=== PATIENT | male | born 1970 | race Caucasian/White ===

== ENCOUNTER → 2017-02-18 | Outpatient (CLI) | payer OTHER ==
--- NOTE | 2017-02-19 11:34 | US ---
EXAMINATION TYPE: US scrotum with doppler. Grayscale and color Doppler Duplex imaging performed of álvaro xiao scrotum. DATE OF EXAM: 02/18/2017 COMPARISON: NONE CLINICAL HISTORY: N44.2 benign cyst of testis. EXAM MEASUREMENTS: TESTICLES: Right Testicle: 4.9 x 2.3 x 3.1 cm Left Testicle: 4.4 x 1.9 x 3.2 cm EPIDIDYMIS HEAD: Right Epididymis: 1.5 cm, two cysts visualized, largest measuring 0.8 x 0.5 x 0.6 cm Left Epididymis: 1.4 cm, cyst visualized measuring 1.3 x 1.1 x 1.3 cm Doppler performed to assess for testicular vascularity; good bilateral color flow and waveforms are s een. There is no evidence of testicular torsion. Presence of hydroceles: Small amount of fluid visualized bilaterally Presence of varicoceles: Yes, on the left IMPRESSION: 1. Small bilateral hydroceles left varicocele 3. Bilateral cysts
== END | disposition home or self-care (01) ==
LOC: RADUSMAIN 17:15
PROVIDERS: ATTEND Internal Medicine
DX: N50.3 Cyst of epididymis (principal); N43.3 Hydrocele, unspecified; I86.1 Scrotal varices
CPT/HCPCS: 76870; 93975

== ENCOUNTER → 2017-03-18 | Outpatient (CLI) | payer OTHER ==
--- NOTE | 2017-03-19 07:20 | US ---
EXAMINATION TYPE: US gallbladder DATE OF EXAM: 03/18/2017 COMPARISON: NONE CLINICAL HISTORY: R11.0 Nausea, Abdominal Pain R10.84. pain comes and goes EXAM MEASUREMENTS: Liver Length: 15.8 cm Gallbladder Wall: 0.3 cm CBD: 0.6 cm Right Kidney: 11.4 x 6.2 x 5.8 cm larger body habitus with overlying bowel gas Pancreas: limited views appear wnl Liver: The liver shows a coarse echotexture. 2.2cm hypoechoic area seen within right lobe and adjace nt to GB, suggestive of focal fatty sparring Gallbladder: wnl Evidence for sonographic Young's sign: no CBD: Borderline dilated Right Kidney: wnl There is no ascites. IMPRESSION: Common bile duct measurement borderline dilated. Probable fatty infiltration of the liver areas of focal fatty sparing, correlate, MRI may be of benefit.
== END | disposition home or self-care (01) ==
LOC: RADUSWWP 16:30
PROVIDERS: ATTEND Surgery
DX: K83.8 Other specified diseases of biliary tract (principal); R10.84 Generalized abdominal pain; R11.0 Nausea
CPT/HCPCS: 76705

== ENCOUNTER 2022-11-02 20:19 | Emergency (ER) | payer OTHER ==
[2022-11-02 20:26] VITALS: TEMP 97.9
--- NOTE | 2022-11-02 21:17 | US ---
EXAMINATION TYPE: US venous doppler duplex LE RT DATE OF EXAM: 11/02/2022 9:09 PM COMPARISON: NONE CLINICAL HISTORY: swelling redness. Swelling in right leg x 1 month. No hx of DVT. Not on blood thinn ers SIDE PERFORMED: Right TECHNIQUE: The lower extremity deep venous system is examined utilizing real time linear array sonog radha with graded compression, doppler sonography and color-flow sonography. VESSELS IMAGED: Common Femoral Vein Deep Femoral Vein Greater Saphenous Vein * Femoral Vein Popliteal Vein Small Saphenous Vein * Proximal Calf Veins (* superficial vessels) Right Leg: Popliteal vein is limited. Distal pop vein did not seem to fully compress, but the blood flow seemed to be good. ? DVT in distal popliteal vein. All other veins negative for DVT IMPRESSION: There is evidence for some chronic deep vein thrombosis is limited to the popliteal vein.
[2022-11-02] MEDS ORDERED: APIXABAN 5 MG TAB PO STA (21:36)
--- NOTE | 2022-11-02 21:39 | ED ---
Extremity Problem HPI - General Chief complaint: Extremity Problem,Nontraumatic Stated complaint: right leg swelling Time Seen by Provider: 11/02/22 20:27 Source: patient Mode of arrival: ambulatory Limitations: no limitations - History of Present Illness Initial comments: Patient is a 51 year old female who presents to the emergency department for evaluation of right leg swelling. Patient reports swelling in his leg that has worsened over the past month. Today he noticed some calf redness his family urged him to come to the ED. He denies injury and leg pain. He denies chest pain and shortness of breath. Denies history of DVT and PE. He does not use blood thinners. Denies hormone replacement, long car rides, airplane travel, surgical interventions, known cancers, family history of clotting, tobacco use - Related Data Home Medications Medication Instructions Recorded Confirmed ALPRAZolam [Xanax] 0.25 mg PO BID 11/02/22 11/02/22 Escitalopram Oxalate [Lexapro] 10 mg PO DAILY 11/02/22 11/02/22 Esomeprazole Magnesium [NexIUM] 40 mg PO DAILY 11/02/22 11/02/22 Ibuprofen [Motrin] 800 mg PO BID PRN 11/02/22 11/02/22 Propranolol LA [Inderal LA] 60 mg PO DAILY 11/02/22 11/02/22 lisinopriL [Prinivil] 10 mg PO DAILY 11/02/22 11/02/22 Previous Rx's Medication Instructions Recorded Apixaban [Eliquis Starter Pack 0 mg PO DIRECTED 30 Days #1 11/02/22 (for VTE)] packet Allergies Allergy/AdvReac Type Severity Reaction Status Date / Time No Known Allergies Allergy Verified 11/02/22 21:58 Review of Systems ROS Statement: Those systems with pertinent positive or pertinent negative responses have been documented in the HPI. ROS Other: All systems not noted in ROS Statement are negative. Past Medical History Past Medical History: GERD/Reflux, Hypertension History of Any Multi-Drug Resistant Organisms: None Reported Past Surgical History: Orthopedic Surgery Additional Past Surgical History / Comment(s): rt knee Past Psychological History: No Psychological Hx Reported Smoking Status: Never smoker Past Alcohol Use History: None Reported Past Drug Use History: None Reported General Exam Limitations: no limitations General appearance: alert, in no apparent distress Head exam: Present: atraumatic, normocephalic, normal inspection Eye exam: Present: normal appearance, PERRL, EOMI. Absent: scleral icterus, conjunctival injection, periorbital swelling Respiratory exam: Present: normal lung sounds bilaterally. Absent: respiratory distress, wheezes, rales, rhonchi, stridor Cardiovascular Exam: Present: regular rate, normal rhythm, normal heart sounds. Absent: systolic murmur, diastolic murmur, rubs, gallop, clicks Extremities exam: Present: normal inspection, full ROM, normal capillary refill, other (mild swelling of right lower extremity. Minimal erythema over calf no blanching warm tenderness. DP 2+. sensation intact). Absent: calf tenderness Neurological exam: Present: alert, oriented X3, CN II-XII intact Psychiatric exam: Present: normal affect, normal mood Skin exam: Present: warm, dry, intact, normal color. Absent: rash Course Vital Signs 11/02/22 11/02/22 20:23 22:03 Temperature 97.9 F Pulse Rate 98 88 Respiratory 18 16 Rate Blood Pressure 171/99 164/90 O2 Sat by Pulse 94 L 98 Oximetry Medical Decision Making - Medical Decision Making Was pt. sent in by a medical professional or institution (, PA, [employer], urgent care, hospital, or senior care...) When possible be specific @ -[No] Did you speak to anyone other than the patient for history (EMS, parent, family, police, friend...)? What history was obtained from this source @ -[No] Did you review nursing and triage notes (agree or disagree)? Why? @ -[I reviewed and agree with nursing and triage notes] Were old charts reviewed (outside hosp., previous admission, EMS record, old EKG, old radiological studies, urgent care reports/EKG's, senior care records)? Report findings @ -[No old charts were reviewed] Differential Diagnosis (chest pain, altered mental status, abdominal pain women, abdominal pain men, vaginal bleeding, weakness, fever, dyspnea, syncope, headache, dizziness, GI bleed, back pain, seizure, CVA, palpatations, mental health)? @ -DVT, cellulitis, dependent edema, heart failure EKG interpreted by me (3pts min.). @ -[As above] X-rays interpreted by me (1pt min.). @ -[None done] CT interpreted by me (1pt min.). @ -[None done] U/S interpreted by me (1pt. min.). @ -No. Ultrasound report shows evidence for some chronic deep vein thrombosis in the popliteal vein although study was limited. Distal popliteal vein did not seem to fully compress What testing was considered but not performed or refused? (CT, X-rays, U/S, labs)? Why? @ -[None] What meds were considered but not given or refused? Why? @ -[None] Did you discuss the management of the patient with other professionals (professionals i.e. , PA, [employer], lab, RT, psych nurse, oncology social work, load mixer, teacher, railroad police officer, case finisher)? Give summary @ -[No] Was smoking cessation discussed for >3mins.? @ -[No] Was critical care preformed (if so, how long)? @ -[No] Were there social determinants of health that impacted care today? How? (Homelessness, low income, unemployed, alcoholism, drug addiction, transporta tion, low edu. Level, literacy, decrease access to med. care, senior care, rehab)? @ -[No] Was there de-escalation of care discussed even if they declined (Discuss DNR or withdrawal of care, Hospice)? DNR status @ -[No] What co-morbidities impacted this encounter? (DM, HTN, Smoking, COPD, CAD, Cancer, CVA, ARF, Chemo, Hep., AIDS, mental health diagnosis, sleep apnea, morbid obesity)? @ -[None] Was patient admitted / discharged? Hospital course, mention meds given and route, prescriptions, significant lab abnormalities, going to OR and other pertinent info. @ -Patient presenting with right lower leg swelling. Ultrasound shows DVT which may be chronic. Study is limited patient will be treated for acute DVT with Xarelto. We discussed risks of blood thinning medications. Patient is referred to vascular surgery Undiagnosed new problem with uncertain prognosis? @ -[No] Drug Therapy requiring intensive monitoring for toxicity (Heparin, Nitro, Insulin, Cardizem)? @ -[No] Were any procedures done? @ -[No] Diagnosis/symptom? @ -DVT Acute, or Chronic, or Acute on Chronic? @ -[default] Uncomplicated (without systemic symptoms) or Complicated (systemic symptoms)? @ -[default] Side effects of treatment? @ -[No] Exacerbation, Progression, or Severe Exacerbation? @ -[No] Poses a threat to life or bodily function? How? (Chest pain, [place], [place], pneumonia, PE, COPD, DKA, ARF, appy, cholecystitis, CVA, Diverticulitis, Homicidal, Suicidal, threat to staff... and all critical care pts) @ -not currently Dr. Todd is my attending Disposition Clinical Impression: Deep vein thrombosis (DVT) of lower extremity Disposition: HOME SELF-CARE Condition: Good Instructions (If sedation given, give patient instructions): Deep Vein Thrombosis (ED) Additional Instructions: Take medication as directed. Follow-up with vascular surgery in 1-2 days. Return to the emergency department experience new, concerning, or worsening symptoms. Prescriptions: Apixaban [Eliquis Starter Pack (for VTE)] 0 mg PO DIRECTED 30 Days #1 packet Is patient prescribed a controlled substance at d/c from ED?: No Referrals: Sriram Espinosa MD [Primary Care Provider] - 1-2 days Vilma Lockhart DO [STAFF PHYSICIAN] - 1-2 days
[2022-11-02 22:04] VITALS: BP 164/90; PULSE 88; RESP 16
== END 2022-11-02 22:03 | disposition home or self-care (01) ==
LOC: EC 20:19
DX: I82.531 Chronic embolism and thrombosis of right popliteal vein (principal); K21.9 Gastro-esophageal reflux disease without esophagitis; I10 Essential (primary) hypertension; Z79.899 Other long term (current) drug therapy
CPT/HCPCS: 99283